=== PATIENT | female | born 1990 | race Two or more races ===

== ENCOUNTER 2018-04-19 23:20 | Inpatient (IN) ==
[2018-04-19 23:45] VITALS: BMI 32.8
[2018-04-20 00:21] LABS: BILIRUBIN,URINE NEGATIVE (NEGATIVE); BLOOD/HEMOGLOBIN,URINE 2+ (NEGATIVE); GLUCOSE, URINE NEGATIVE (NEGATIVE); KETONES,URINE 1+ (NEGATIVE); LEUKOCYTE ESTERASE ,URINE 1+ (NEGATIVE); NITRITES,URINE NEGATIVE (NEGATIVE); PROTEIN,URINE 2+ (NEGATIVE); UROBILINOGEN,URINE 1+ (NORMAL)
[2018-04-20 00:22] LABS: AMNISURE ROM TEST THERE IS A RUPTURE (NO RUPTURE)
[2018-04-20 00:28] LABS: APPEARANCE,URINE HAZY (CLEAR); COLOR,URINE DARK YELLOW (YELLOW)
[2018-04-20 00:29] LABS: BACTERIA,URINE 1+ /HPF (NEGATIVE); RBC,URINE 0-2 /HPF (NONE SEEN); SQUAMOUS EPITHELIAL CELL,UR FEW /HPF (NEGATIVE)
[2018-04-20 01:03] LABS: BASOPHILS # (AUTO) 0.1 X10^3/uL (0.0-0.1); BASOPHILS % (AUTO) 0.9 % (0.2-1.0); EOSINOPHILS # (AUTO) 0.2 x10^3/uL (0.0-0.2); EOSINOPHILS % (AUTO) 1.2 % (0.9-2.9); HEMATOCRIT 34.5 % (36.0-47.0); HEMOGLOBIN 11.6 g/dL (12.0-16.0); LYMPHOCYTES # (AUTO) 3.4 X10^3/uL (1.3-2.9); LYMPHOCYTES % (AUTO) 24.8 % (21.0-51.0); MEAN CORPUSCULAR HGB CONC 33.6 g/dL (33.0-35.0); MEAN CORPUSCULAR VOLUME 80.3 fL (80.0-100.0); MEAN PLATELET VOLUME 10.7 fL (7.4-11.0); MONOCYTES # (AUTO) 0.8 x10^3/uL (0.3-0.8); MONOCYTES % (AUTO) 5.9 % (0.0-13.0); NEUTROPHILS # (AUTO) 9.3 x10^3/uL (2.2-4.8); NEUTROPHILS % (AUTO) 67.2 % (42.0-75.0); PLATELET COUNT 293 X10^3/uL (150.0-450.0); RED BLOOD COUNT 4.29 X10^6/uL (3.5-5.4); RED CELL DISTRIBUTION WIDTH 14.4 % (11.6-16.5); WHITE BLOOD COUNT 13.8 X10^3/uL (3.6-10.0)
[2018-04-20] MEDS ORDERED: PITOCIN ONE (01:09)
[2018-04-20] MEDS ORDERED: D5LR 1L W PITOCIN 10 UNITS/L 10 UNITS/1,000 ML BAG IV ONE ×2 (01:09→12:29)
[2018-04-20] MEDS ORDERED: AMPICILLIN VIAL 2 GRAM ONE (01:09)
[2018-04-20] MEDS ORDERED: FENTANYL INJ 100 mcg ONE (01:09)
[2018-04-20] MEDS ORDERED: NS 100 ML IV 100 ML IV ONE ×4 (01:09→12:08)
[2018-04-20] MEDS ORDERED: NAROPIN EPIDURAL 0.2% + FENTANYL 90MCG 60 ML EPI ONE ×2 (01:10→11:19)
[2018-04-20] MEDS ORDERED: D5 1/2 NS 1L W PITOCIN 20 UNITS/L 20 UNITS/1,000 ML BAG IV ONE (01:10)
[2018-04-20] MEDS ORDERED: D5 1/2 NS 1000 ML 1,000 ML IV ONE (01:10)
[2018-04-20] MEDS: D5 1/2 NS 1000 ML 1,000 ML IV SCH ×2 (01:15→23:45)
[2018-04-20] MEDS ORDERED: LR 1000 ML IV 1,000 ML IV ONE (01:16)
[2018-04-20 01:17] LABS: BLOOD UREA NITROGEN 9 mg/dL (7-18); CHLORIDE 103 mmol/L (98-107); CREATININE 0.57 mg/dL (0.55-1.02); SODIUM 134 mmol/L (136-145); eGFR NON BLACK RACES > 60 (>60)
[2018-04-20] MEDS ORDERED: PITOCIN IVP ONE (01:18)
[2018-04-20] MEDS ORDERED: NUBAIN INJ 200 MG VIAL MULTIDOSE IVP PRN (01:18)
[2018-04-20] MEDS ORDERED: PHENERGAN INJ 25 MG IV PRN ×2 (01:18→15:59)
[2018-04-20] MEDS ORDERED: D5LR 1L W PITOCIN 10 UNITS/L 10 UNITS/1,000 ML BAG IV PRN (01:18)
[2018-04-20] MEDS ORDERED: AMPICILLIN VIAL 2 GRAM 2 G in NS 100 ML IV + SPIKE MINIBAG* 100 ML IV SCH (02:00)
[2018-04-20] MEDS ORDERED: AMPICILLIN VIAL 1 GRAM ONE ×3 (04:59→12:08)
[2018-04-20] MEDS: AMPICILLIN VIAL 1 GRAM 1 G in NS 50 ML IV + SPIKE MINIBAG* 50 ML IV SCH ×3 (05:12→12:08)
[2018-04-20] MEDS ORDERED: XYLOCAINE 1 % (PLAIN) ONE (05:47)
[2018-04-20] MEDS ORDERED: ADRENALINE CHL INJ ONE (05:48)
[2018-04-20] MEDS ORDERED: ILOTYCIN OPHTH OINT ONE (08:43)
[2018-04-20] MEDS ORDERED: AQUA-MEPHYTON NEONATAL IM ONE (08:43)
[2018-04-20] MEDS ORDERED: MOTRIN TAB 800 MG PO PRN (15:59)
[2018-04-20] MEDS ORDERED: D5 1/2 NS 1000 ML 1,000 ML with PITOCIN 20 UNITS IV SCH ×2 (16:00)
[2018-04-20] MEDS ORDERED: ADACEL or BOOSTRIX TDaP VACCINE IM ONE (16:52)
[2018-04-20] MEDS ORDERED: MILK OF MAGNESIA PO PRN (16:52)
[2018-04-20] MEDS ORDERED: AMBIEN PO PRN (16:52)
[2018-04-20] MEDS ORDERED: DERMOPLAST SPRAY TOP PRN (20:00)
[2018-04-20] MEDS ORDERED: BETADINE SOLN TOP PRN (20:00)
[2018-04-20] MEDS ORDERED: DERMOPLAST SPRAY ONE (20:19)
[2018-04-20] MEDS: ZANTAC PO SCH (21:00)
[2018-04-21 04:24] LABS: HEMATOCRIT 32.2 % (36.0-47.0); HEMOGLOBIN 10.6 g/dL (12.0-16.0)
[2018-04-21] MEDS: PRENATAL PLUS PO SCH (09:55)
[2018-04-21] MEDS: ZANTAC PO SCH ×2 (09:55→20:29)
[2018-04-22 09:11] VITALS: BP 114/70
[2018-04-22] MEDS: PRENATAL PLUS PO SCH (10:50)
[2018-04-22] MEDS: ZANTAC PO SCH (10:50)
== END 2018-04-22 11:15 | disposition home or self-care (01) | DRG 775 ==
LOC: ER 23:37 → LD 04-20 01:00 → MED/SURG 04-20 16:52
PROVIDERS: ADMIT Obstetrics & Gynecology Obstetrics; ATTEND Obstetrics & Gynecology Obstetrics
DX: O80 Encounter for full-term uncomplicated delivery; Z23 Encounter for immunization; Z3A.39 39 weeks gestation of pregnancy; Z37.0 Single live birth
CPT/HCPCS: 36415; 59409; 80048; 81001; 84112; 85014; 85018; 85025; 86592; 86850; 86900; 86901; 90715; 99284; A4216; A4222; S0197; J0171; J0290; J2590; J3010; J3430; J7050; J7120; S5010

== ENCOUNTER 2019-05-04 12:12 | Inpatient (IN) ==
[2019-05-04] MEDS ORDERED: REGLAN INJ 10 MG VIAL IVP PRN (12:46)
[2019-05-04] MEDS ORDERED: NUBAIN INJ 200 MG VIAL MULTIDOSE IVP PRN (12:46)
[2019-05-04] MEDS ORDERED: PITOCIN IVP ONE (12:46)
[2019-05-04] MEDS ORDERED: D5LR 1L W PITOCIN 10 UNITS/L 10 UNITS/1,000 ML BAG IV PRN (12:46)
[2019-05-04] MEDS ORDERED: D5 1/2 NS 1L W PITOCIN 20 UNITS/L 20 UNITS/1,000 ML BAG IV ONE (12:55)
[2019-05-04] MEDS ORDERED: D5 1/2 NS 1000 ML 1,000 ML IV SCH (13:00)
[2019-05-04 13:10] LABS: BASOPHILS # (AUTO) 0.1 X10^3/uL (0.0-0.1); BASOPHILS % (AUTO) 0.6 % (0.2-1.0); EOSINOPHILS % (AUTO) 0.4 % (0.9-2.9); HEMATOCRIT 35.6 % (36.0-47.0); HEMOGLOBIN 11.9 g/dL (12.0-16.0); LYMPHOCYTES # (AUTO) 3.2 X10^3/uL (1.3-2.9); LYMPHOCYTES % (AUTO) 23.4 % (21.0-51.0); MEAN CORPUSCULAR HEMOGLOBIN 25.9 pg (27.0-34.0); MEAN CORPUSCULAR HGB CONC 33.3 g/dL (33.0-35.0); MEAN CORPUSCULAR VOLUME 77.6 fL (80.0-100.0); MEAN PLATELET VOLUME 9.6 fL (7.4-11.0); MONOCYTES # (AUTO) 0.5 x10^3/uL (0.3-0.8); MONOCYTES % (AUTO) 3.9 % (0.0-13.0); NEUTROPHILS # (AUTO) 9.7 x10^3/uL (2.2-4.8); NEUTROPHILS % (AUTO) 71.7 % (42.0-75.0); PLATELET COUNT 272 X10^3/uL (150.0-450.0); RED BLOOD COUNT 4.59 X10^6/uL (3.5-5.4); RED CELL DISTRIBUTION WIDTH 15.5 % (11.6-16.5); WHITE BLOOD COUNT 13.6 X10^3/uL (3.6-10.0)
[2019-05-04 13:20] LABS: BLOOD UREA NITROGEN 9 mg/dL (7-18); CALCIUM 8.7 mg/dL (8.5-10.1); CARBON DIOXIDE 23.1 mmol/L (21-32); CHLORIDE 103 mmol/L (98-107); CREATININE 0.66 mg/dL (0.55-1.02); SODIUM 137 mmol/L (136-145); eGFR NON BLACK RACES > 60 (>60)
[2019-05-04 13:43] LABS: PLATELET MORPHOLOGY COMMENT NORMAL (NORMAL)
[2019-05-04] MEDS ORDERED: LR 1000 ML IV 1,000 ML ONE (15:20)
[2019-05-04] MEDS ORDERED: FENTANYL INJ 100 mcg ONE (15:21)
[2019-05-04] MEDS ORDERED: NAROPIN EPIDURAL 0.2% + FENTANYL 90MCG 60 ML EPI ONE (15:21)
[2019-05-04] MEDS ORDERED: PHENERGAN INJ 25 MG IM PRN (19:53)
[2019-05-04] MEDS ORDERED: D5 1/2 NS 1000 ML 1,000 ML with PITOCIN 20 UNITS IV SCH ×2 (20:00)
[2019-05-04] MEDS ORDERED: AMBIEN PO PRN (20:52)
[2019-05-04] MEDS ORDERED: DERMOPLAST SPRAY TOP PRN (20:52)
[2019-05-04] MEDS ORDERED: MILK OF MAGNESIA PO PRN (20:52)
[2019-05-04] MEDS: ZANTAC PO SCH (21:45)
[2019-05-05] MEDS: MOTRIN TAB 800 MG PO PRN ×2 (03:55→16:32)
[2019-05-05 05:10] LABS: HEMATOCRIT 33.7 % (36.0-47.0); HEMOGLOBIN 10.9 g/dL (12.0-16.0)
[2019-05-05] MEDS: ZANTAC PO SCH ×2 (08:25→20:27)
[2019-05-05] MEDS: PRENATAL PLUS PO SCH (08:26)
[2019-05-06] MEDS: ZANTAC PO SCH (09:23)
[2019-05-06] MEDS: PRENATAL PLUS PO SCH (09:23)
[2019-05-06 09:51] VITALS: BP 111/65
== END 2019-05-06 11:47 | disposition home or self-care (01) | DRG 807 ==
LOC: LD 12:12 → MED/SURG 20:52
PROVIDERS: ADMIT Obstetrics & Gynecology Obstetrics; ATTEND Obstetrics & Gynecology Obstetrics
DX: Z37.0 Single live birth; O71.82 Other specified trauma to perineum and vulva; Z3A.38 38 weeks gestation of pregnancy; O70.0 First degree perineal laceration during delivery
CPT/HCPCS: 36415; 59409; 80048; 85014; 85018; 85025; 86592; 86850; 86900; 86901; A4216; A4222; S0197; J2590; J3010; J7120; S5010

== ENCOUNTER 2020-03-22 07:02 | Inpatient (IN) ==
[2020-03-22] MEDS ORDERED: PITOCIN IVP ONE (07:11)
[2020-03-22] MEDS ORDERED: PHENERGAN INJ 25 MG IM PRN ×3 (07:11→19:52)
[2020-03-22] MEDS ORDERED: REGLAN INJ 10 MG VIAL IVP PRN ×2 (07:11→19:52)
[2020-03-22] MEDS ORDERED: D5LR 1L W PITOCIN 10 UNITS/L 10 UNITS/1,000 ML BAG IV PRN (07:11)
[2020-03-22] MEDS ORDERED: NUBAIN INJ 200 MG VIAL MULTIDOSE IVP PRN (07:11)
[2020-03-22] MEDS ORDERED: MORPHINE SULFATE INJ 2 MG INJ IVP PRN (07:11)
[2020-03-22] MEDS ORDERED: PITOCIN ONE (07:13)
[2020-03-22] MEDS ORDERED: AMPICILLIN VIAL 2 GRAM ONE (07:13)
[2020-03-22] MEDS ORDERED: LR 1000 ML IV 1,000 ML IV ONE ×2 (07:14→14:32)
[2020-03-22] MEDS ORDERED: BETADINE SOLN ONE (07:14)
[2020-03-22] MEDS ORDERED: D5LR 1L W PITOCIN 10 UNITS/L 10 UNITS/1,000 ML BAG IV ONE (07:15)
[2020-03-22] MEDS ORDERED: D5 1/2 NS 1L W PITOCIN 20 UNITS/L 20 UNITS/1,000 ML BAG IV ONE (07:15)
[2020-03-22] MEDS ORDERED: AMPICILLIN VIAL 2 GRAM 2 G in NS 100 ML IV + SPIKE MINIBAG* 100 ML IV SCH (07:15)
[2020-03-22] MEDS ORDERED: NS 100 ML IV + SPIKE MINIBAG* 100 ML IV ONE ×2 (07:19→12:03)
[2020-03-22 07:38] LABS: BASOPHILS # (AUTO) 0.2 X10^3/uL (0.0-0.1); BASOPHILS % (AUTO) 1.6 % (0.2-1.0); EOSINOPHILS # (AUTO) 0.2 x10^3/uL (0.0-0.2); EOSINOPHILS % (AUTO) 1.4 % (0.9-2.9); HEMATOCRIT 33.4 % (36.0-47.0); HEMOGLOBIN 10.7 g/dL (12.0-16.0); LYMPHOCYTES # (AUTO) 3.4 X10^3/uL (1.3-2.9); LYMPHOCYTES % (AUTO) 26.6 % (21.0-51.0); MEAN CORPUSCULAR HEMOGLOBIN 24.9 pg (27.0-34.0); MEAN CORPUSCULAR HGB CONC 32.1 g/dL (33.0-35.0); MEAN CORPUSCULAR VOLUME 77.4 fL (80.0-100.0); MEAN PLATELET VOLUME 9.1 fL (7.4-11.0); MONOCYTES # (AUTO) 0.7 x10^3/uL (0.3-0.8); MONOCYTES % (AUTO) 5.6 % (0.0-13.0); NEUTROPHILS # (AUTO) 8.3 x10^3/uL (2.2-4.8); NEUTROPHILS % (AUTO) 64.8 % (42.0-75.0); PLATELET COUNT 318 X10^3/uL (150.0-450.0); RED BLOOD COUNT 4.32 X10^6/uL (3.5-5.4); RED CELL DISTRIBUTION WIDTH 13.9 % (11.6-16.5); WHITE BLOOD COUNT 12.9 X10^3/uL (3.6-10.0)
[2020-03-22 07:46] LABS: BLOOD UREA NITROGEN 8 mg/dL (7-18); CALCIUM 8.6 mg/dL (8.5-10.1); CARBON DIOXIDE 20.8 mmol/L (21-32); CHLORIDE 103 mmol/L (98-107); CREATININE 0.61 mg/dL (0.55-1.02); SODIUM 136 mmol/L (136-145); eGFR NON BLACK RACES > 60 (>60)
[2020-03-22 07:49] LABS: BILIRUBIN,URINE NEGATIVE (NEGATIVE); BLOOD/HEMOGLOBIN,URINE 1+ (NEGATIVE); GLUCOSE, URINE NEGATIVE (NEGATIVE); KETONES,URINE 1+ (NEGATIVE); LEUKOCYTE ESTERASE ,URINE 3+ (NEGATIVE); NITRITES,URINE NEGATIVE (NEGATIVE); PROTEIN,URINE 2+ (NEGATIVE); UROBILINOGEN,URINE NORMAL (NORMAL)
[2020-03-22 07:50] LABS: PLATELET MORPHOLOGY COMMENT NORMAL (NORMAL)
[2020-03-22 07:51] LABS: HYPOCHROMASIA SLIGHT
[2020-03-22 07:57] LABS: APPEARANCE,URINE HAZY (CLEAR); COLOR,URINE YELLOW (YELLOW)
[2020-03-22 07:58] LABS: AMORPHOUS SEDIMENT,UR 2+ /HPF (NEGATIVE); BACTERIA,URINE TRACE /HPF (NEGATIVE); HYALINE CASTS, URINE MODERATE /LPF (NEGATIVE); SQUAMOUS EPITHELIAL CELL,UR MANY /HPF (NEGATIVE)
[2020-03-22] MEDS: AMPICILLIN VIAL 1 GRAM 1 G in NS 50 ML IV + SPIKE MINIBAG* 50 ML IV SCH ×4 (12:01→23:47)
[2020-03-22] MEDS ORDERED: AMPICILLIN VIAL 1 GRAM ONE ×2 (12:03→15:41)
[2020-03-22] MEDS ORDERED: NS 100 ML IV 100 ML IV ONE (15:41)
[2020-03-22] MEDS ORDERED: ANCEF 1 GRAM IV PREMIX* 2 G/100 ML BAG IV ONE (18:29)
[2020-03-22] MEDS ORDERED: DILAUDID INJ ONE (18:38)
[2020-03-22] MEDS ORDERED: MARCAINE SPINAL ONE (18:41)
[2020-03-22] MEDS ORDERED: BENADRYL INJ 50 MG VIAL IVP PRN (19:52)
[2020-03-22] MEDS ORDERED: ZOFRAN INJ 4 MG VIAL IVP PRN (19:52)
[2020-03-22] MEDS ORDERED: DILAUDID INJ IVP PRN (19:52)
[2020-03-22] MEDS ORDERED: D5 1/2 NS 1000 ML 1,000 ML with PITOCIN 20 UNITS IV SCH ×2 (20:00)
[2020-03-22] MEDS ORDERED: ADACEL or BOOSTRIX TDaP VACCINE IM ONE (20:11)
[2020-03-23 05:38] LABS: HEMATOCRIT 29.1 % (36.0-47.0); HEMOGLOBIN 9.4 g/dL (12.0-16.0)
[2020-03-23] MEDS ORDERED: PERCOCET TAB 5/325 MG PO PRN (07:36)
[2020-03-23] MEDS ORDERED: NS 100 ML IV 100 ML with VENOFER 400 MG IV NR ×2 (07:36)
[2020-03-23] MEDS: PRENATAL PLUS PO SCH (08:30)
[2020-03-23] MEDS: MILK OF MAGNESIA PO PRN (08:30)
[2020-03-23] MEDS: MOTRIN TAB 800 MG PO PRN ×2 (08:30→21:00)
[2020-03-23] MEDS ORDERED: ADACEL or BOOSTRIX TDaP VACCINE IM ONE (20:06)
[2020-03-24] MEDS: PRENATAL PLUS PO SCH (08:40)
[2020-03-24] MEDS: MOTRIN TAB 800 MG PO PRN (08:40)
[2020-03-24] MEDS: MILK OF MAGNESIA PO PRN (08:40)
[2020-03-24 13:55] VITALS: BP 98/56
[2020-03-24] MEDS ORDERED: ZOFRAN INJ 4 MG VIAL ONE (14:52)
[2020-03-24] MEDS ORDERED: EPHEDRINE SULFATE INJ ONE (14:52)
[2020-03-24] MEDS ORDERED: XYLOCAINE 2 % (PLAIN) ONE (14:52)
== END 2020-03-24 12:30 | disposition home or self-care (01) | DRG 788 ==
LOC: LD 07:02 → MED/SURG 20:13
PROVIDERS: ADMIT Obstetrics & Gynecology Obstetrics; ATTEND Obstetrics & Gynecology Obstetrics
DX: B95.1 Streptococcus, group B, as the cause of diseases classified elsewhere; Z3A.39 39 weeks gestation of pregnancy; O99.824 Streptococcus B carrier state complicating childbirth; Z23 Encounter for immunization; Z37.0 Single live birth
CPT/HCPCS: 36415; 80048; 81001; 85014; 85018; 85025; 86592; 86850; 86900; 86901; 90715; A4216; A4222; J0290; J0690; J1170; J1756; J2405; J2550; J2590; J2765; J3490; J7050; J7120; S0197; S5010

== ENCOUNTER 2022-07-29 06:44 | Inpatient (IN) ==
[2022-07-29] MEDS ORDERED: PITOCIN ONE ×2 (06:54→06:55)
[2022-07-29] MEDS ORDERED: BETADINE SOLN ONE (06:54)
[2022-07-29] MEDS ORDERED: LR 1,000 ML IV 2,000 ML IV ONE (06:55)
[2022-07-29] MEDS ORDERED: D5 1/2 NS 1,000 mL + PITOCIN 20 UNITS/L IV 20 UNITS/1,000 ML BAG IV ONE (06:55)
[2022-07-29] MEDS: LR 1,000 ML IV 1,000 ML IV SCH ×2 (07:21→22:23)
[2022-07-29] MEDS ORDERED: PITOCIN IVP ONE (07:40)
[2022-07-29] MEDS ORDERED: REGLAN INJ 10 MG VIAL IVP PRN (07:40)
[2022-07-29] MEDS ORDERED: PHENERGAN INJ 25 MG IM PRN ×2 (07:40→22:23)
[2022-07-29] MEDS ORDERED: STADOL INJ IVP PRN (07:42)
[2022-07-29] MEDS ORDERED: PITOCIN IV PRN ×2 (07:45)
[2022-07-29] MEDS ORDERED: LR IV PRN ×2 (07:45)
[2022-07-29 08:08] LABS: BILIRUBIN,URINE NEGATIVE (NEGATIVE); BLOOD/HEMOGLOBIN,URINE 1+ (NEGATIVE); GLUCOSE, URINE NEGATIVE (NEGATIVE); KETONES,URINE NEGATIVE (NEGATIVE); LEUKOCYTE ESTERASE ,URINE 3+ (NEGATIVE); NITRITES,URINE NEGATIVE (NEGATIVE); PROTEIN,URINE 2+ (NEGATIVE); UROBILINOGEN,URINE 1+ (NORMAL)
[2022-07-29 08:18] LABS: APPEARANCE,URINE CLOUDY (CLEAR); COLOR,URINE DARK YELLOW (YELLOW)
[2022-07-29 08:19] LABS: BACTERIA,URINE 1+ /HPF (NEGATIVE); SQUAMOUS EPITHELIAL CELL,UR NUMEROUS /HPF (NEGATIVE)
[2022-07-29 08:21] LABS: BASOPHILS # (AUTO) 0.1 X10^3/uL (0.0-0.1); BASOPHILS % (AUTO) 0.7 % (0.2-1.0); EOSINOPHILS # (AUTO) 0.1 x10^3/uL (0.0-0.2); EOSINOPHILS % (AUTO) 0.8 % (0.9-2.9); HEMATOCRIT 32.1 % (36.0-47.0); LYMPHOCYTES # (AUTO) 3.1 X10^3/uL (1.3-2.9); LYMPHOCYTES % (AUTO) 26.9 % (21.0-51.0); MEAN CORPUSCULAR HEMOGLOBIN 27.3 pg (27.0-34.0); MEAN CORPUSCULAR HGB CONC 34.2 g/dL (33.0-35.0); MEAN CORPUSCULAR VOLUME 79.9 fL (80.0-100.0); MEAN PLATELET VOLUME 10.6 fL (7.4-11.0); MONOCYTES # (AUTO) 0.6 x10^3/uL (0.3-0.8); MONOCYTES % (AUTO) 4.9 % (0.0-13.0); NEUTROPHILS # (AUTO) 7.7 x10^3/uL (2.2-4.8); NEUTROPHILS % (AUTO) 66.7 % (42.0-75.0); RED BLOOD COUNT 4.01 X10^6/uL (3.5-5.4); RED CELL DISTRIBUTION WIDTH 13.6 % (11.6-16.5); WHITE BLOOD COUNT 11.6 X10^3/uL (3.6-10.0)
[2022-07-29 08:23] LABS: BLOOD UREA NITROGEN 8 mg/dL (7-18); CALCIUM 8.4 mg/dL (8.5-10.1); CARBON DIOXIDE 21.5 mmol/L (21-32); CHLORIDE 106 mmol/L (98-107); SODIUM 136 mmol/L (136-145); eGFR NON BLACK RACES > 60 (>60)
[2022-07-29] MEDS ORDERED: NS 1,000 ML IV 1,000 ML ONE (10:32)
[2022-07-29] MEDS ORDERED: LR 1,000 ML IV 1,000 ML IV ONE (12:08)
[2022-07-29] MEDS ORDERED: STADOL INJ ONE (12:08)
[2022-07-29] MEDS ORDERED: NAROPIN EPIDURAL 0.2% 100 ML ONE (12:16)
[2022-07-29] MEDS ORDERED: ZOFRAN INJ 4 MG VIAL ONE (12:16)
[2022-07-29] MEDS ORDERED: FENTANYL VIAL INJ 100 mcg ONE (12:16)
[2022-07-29] MEDS ORDERED: EPHEDRINE SULFATE INJ ONE (13:26)
[2022-07-29] MEDS ORDERED: LIDOCAINE 2%-EPI 1:200,000 ONE (13:47)
[2022-07-29] MEDS ORDERED: MOTRIN TAB 800 MG PO PRN (22:23)
[2022-07-29] MEDS: D5 1/2 NS 1,000 ML 1,000 ML with PITOCIN 20 UNITS IV SCH ×2 (22:28)
[2022-07-29] MEDS ORDERED: AMBIEN PO PRN (22:48)
[2022-07-29] MEDS ORDERED: MILK OF MAGNESIA PO PRN (22:48)
[2022-07-29] MEDS ORDERED: DERMOPLAST PAIN RELIEF SPRAY TOP PRN (22:48)
[2022-07-30] MEDS: MOTRIN TAB 800 MG PO PRN ×2 (01:07→19:12)
[2022-07-30] MEDS: D5 1/2 NS 1,000 ML 1,000 ML with PITOCIN 20 UNITS IV SCH ×8 (03:25→23:23)
[2022-07-30 06:34] LABS: HEMATOCRIT 30.4 % (36.0-47.0); HEMOGLOBIN 10.4 g/dL (12.0-16.0)
[2022-07-30] MEDS: PRENATAL PLUS PO SCH (08:26)
[2022-07-31] MEDS: D5 1/2 NS 1,000 ML 1,000 ML with PITOCIN 20 UNITS IV SCH ×2 (06:08)
[2022-07-31] MEDS: PRENATAL PLUS PO SCH (07:55)
[2022-07-31 10:09] VITALS: BP 118/72
== END 2022-07-31 10:10 | disposition home or self-care (01) | DRG 807 ==
LOC: LD 06:44 → MED/SURG 22:55
PROVIDERS: ADMIT Obstetrics & Gynecology Obstetrics; ATTEND Obstetrics & Gynecology Obstetrics
DX: O34.219 Maternal care for unspecified type scar from previous cesarean delivery; Z37.0 Single live birth; Z20.822 Contact with and (suspected) exposure to COVID-19; N85.8 Other specified noninflammatory disorders of uterus; Z3A.39 39 weeks gestation of pregnancy